=== PATIENT | male | born 1960 | race Caucasian/White ===

== ENCOUNTER 2018-01-28 05:33 | Emergency (ER) | payer OTHER ==
[2018-01-28] MEDS ORDERED: Aspirin 81 MG Tab.Chew PO ONE (05:37)
[2018-01-28] MEDS ORDERED: Sodium Chloride 0.9% 2.5 ML Syringe FLUSH PRN (05:37)
[2018-01-28] MEDS ORDERED: Sodium Chloride 0.9% 10 ML Syringe FLUSH PRN (05:37)
--- NOTE | 2018-01-28 05:51 | EDM.PDOC ---
ED HPI GENERAL MEDICAL PROBLEM - General Chief Complaint: Chest Pain Stated Complaint: CHEST PAINS Time Seen by Provider: 01/28/18 05:34 - History of Present Illness INITIAL COMMENTS - FREE TEXT/NARRATIVE: HISTORY AND PHYSICAL: History of present illness: The patient is a 57-year-old male with no stated high blood pressure diabetes hypercholesterolemia and has no significant social history presents with sudden onset of left midsternal chest pain pressure that started while he was doing normal morning activities. The patient says he had a normal day yesterday with no systemic complaints no increased or excessive activities and no recent travel. He went about his usual time and woke up at 445, his usual morning wakeup time. After approximately 20-25 minutes of doing his morning ADLs he had sudden onset of this chest pain pressure which was associated with shortness of breath some nausea and lightheadedness but he did not pass out or blackout. Pain did not radiate and he did not take any medications for it and he rated it at its onset as a 9/10. He said he went and laid down in his bed and tried to relax and then decided to come here for evaluation and he currently rates it as a 3/10. He states that he has had chest pain in the past but nothing to this degree and his last full cardiac evaluation was 6 years ago and his last stress test a couple of years ago all of which were negative. The patient says he does activities during the day and does not get chest pain or shortness of breath. He said this was highly unusual and very sudden. He says he has had no abdominal complaints no flank pain and no urinary issues. He has had no leg pain or swelling and currently does not feel short of breath. He has a significant family history of a father who had IL in his 50s, around the same age he is currently now. The patient does not have a local provider Review of systems: As per history of present illness and below otherwise all systems reviewed and negative. Past medical history: As per history of present illness and as reviewed below otherwise noncontributory. Surgical history: As per history of present illness and as reviewed below otherwise noncontributory. Social history: No reported history of drug or alcohol abuse. Family history: As per history of present illness and as reviewed below otherwise noncontributory. Physical exam: General: Well developed well-nourished mildly overweight man who is nontoxic and vital signs are reviewed by me HEENT: Atraumatic, normocephalic, negative for conjunctival pallor or scleral icterus, mucous membranes moist, throat clear, neck supple, nontender, trachea midline. Lungs: Clear to auscultation, breath sounds equal bilaterally, chest nontender. No work of breathing wheezing or stridor and no reproducible chest wall tenderness on palpation Heart: S1S2, regular rhythm but slightly bradycardic rate on my evaluation, negative for clicks, rubs, or JVD. No overt murmurs are appreciated Abdomen: Soft, nondistended, nontender. Negative for masses or hepatosplenomegaly. NABS, and there is no mid epigastric tenderness or pulsatile masses Pelvis: Stable nontender. Genitourinary: Deferred. Rectal: Deferred. Extremities: Atraumatic, negative for cords or calf pain. Neurovascular unremarkable. No pedal edema or leg asymmetry Neuro: Awake, alert, oriented. Cranial nerves II through XII unremarkable. Cerebellum unremarkable. Motor and sensory unremarkable throughout. Exam nonfocal. Skin: Normal turgor no overt rashes or lesions and no diaphoresis Diagnostics: EKG CBC CMP INR troponin chest x-ray Therapeutics: IV O2 monitor aspirin sublingual nitroglycerin , NTP Patient complained of a headache but declined Tylenol Chest pain after 3 sublingual nitros is barely a 1/10. We will apply Nitropaste and continue to monitor the testing results and plan for observation admission. TESTING results have been obtained and discussed with the patient and at bedside. He is aware of my concerns regarding his risk factors and his presentation and that I have strongly advised observation admission. His tells me that he had a similar episode about 3 years ago but it was only a discomfort and not HEENT to this level. After discussing the options with his and re-discussing them with me the patient is declining admission. He understands the risks involved with this and my concerns and states he will follow-up as an outpatient. Impression: Chest pain rule out ACS, patient declines admission Definitive disposition and diagnosis as appropriate pending reevaluation and review of above. chest Pain Score (Numeric/FACES): 3 - Related Data Allergies Allergy/AdvReac Type Severity Reaction Status Date / Time No Known Allergies Allergy Verified 01/28/18 05:47 Home Meds: Home Meds Indomethacin [Indocin] 25 mg PO ASDIRECTED PRN 01/28/18 [History] ED ROS GENERAL - Review of Systems Review Of Systems: ROS reveals no pertinent complaints other than HPI. ED EXAM, GENERAL - Physical Exam Exam: See Below (See dictation) Course - Vital Signs Last Recorded V/S: Last Vital Signs Temp 36.4 C 01/28/18 05:41 Pulse 51 L 01/28/18 06:32 Resp 18 01/28/18 06:32 BP 115/65 01/28/18 06:32 Pulse Ox 98 01/28/18 06:32 - Orders/Labs/Meds Orders: Active Orders 24 hr Category Date Time Status Cardiac Monitoring [RC] . DIRECTED Care 01/28/18 05:36 Active EKG Documentation Completion [RC] STAT Care 01/28/18 05:36 Active Oxygen Therapy, ED [RC] ASDIRECTED Care 01/28/18 05:36 Active Pulse Oximetry [RC] ASDIRECTED Care 01/28/18 05:36 Active Chest 1V Frontal [CR] Stat Exams 01/28/18 05:37 Taken Sodium Chloride 0.9% [Saline Flush] Med 01/28/18 05:37 Active 10 ml FLUSH ASDIRECTED PRN Sodium Chloride 0.9% [Saline Flush] Med 01/28/18 05:37 Active 2.5 ml FLUSH ASDIRECTED PRN Saline Lock Insert [OM.PC] Stat Oth 01/28/18 05:36 Ordered Medication Orders Sodium Chloride (Saline Flush) 10 ml FLUSH ASDIRECTED PRN PRN Reason: Keep Vein Open Sodium Chloride (Saline Flush) 2.5 ml FLUSH ASDIRECTED PRN PRN Reason: Keep Vein Open Labs: Laboratory Tests 01/28/18 01/28/18 01/28/18 Range/Units 05:40 05:40 05:40 WBC 8.14 (4.0-11.0) K/uL RBC 4.84 (4.50-5.90) M/uL Hgb 14.7 (13.0-17.0) g/dL Hct 41.8 (38.0-50.0) % MCV 86.4 (80.0-98.0) fL MCH 30.4 (27.0-32.0) pg MCHC 35.2 (31.0-37.0) g/dL RDW Std Deviation 41.3 (28.0-62.0) fl RDW Coeff of Preet 13 (11.0-15.0) % Plt Count 207 (150-400) K/uL MPV 10.60 (7.40-12.00) fL Neut % (Auto) 50.8 (48.0-80.0) % Lymph % (Auto) 36.0 (16.0-40.0) % Waller % (Auto) 9.2 (0.0-15.0) % Eos % (Auto) 3.6 (0.0-7.0) % Baso % (Auto) 0.4 (0.0-1.5) % Neut # (Auto) 4.1 (1.4-5.7) K/uL Lymph # (Auto) 2.9 H (0.6-2.4) K/uL Waller # (Auto) 0.8 (0.0-0.8) K/uL Eos # (Auto) 0.3 (0.0-0.7) K/uL Baso # (Auto) 0.0 (0.0-0.1) K/uL Nucleated RBC % 0.0 /100WBC Nucleated RBCs # 0 K/uL INR 0.98 Sodium 140 (136-148) mmol/L Potassium 3.7 (3.5-5.1) mmol/L Chloride 106 (98-107) mmol/L Carbon Dioxide 26.9 (21.0-32.0) mmol/L BUN 23 H (7.0-18.0) mg/dL Creatinine 1.1 (0.8-1.3) mg/dL Est Cr Clr Drug Dosing 73.20 mL/min Estimated GFR (MDRD) > 60.0 ml/min Glucose 112 H (74-106) mg/dL Calcium 8.5 (8.5-10.1) mg/dL Total Bilirubin 0.3 (0.2-1.0) mg/dL AST 11 L (15-37) IU/L ALT 32 (14-63) IU/L Alkaline Phosphatase 64 (46-116) U/L Troponin I < 0.050 (0.000-0.056) ng/mL Total Protein 7.0 (6.4-8.2) g/dL Albumin 3.6 (3.4-5.0) g/dL Globulin 3.4 (2.0-3.5) g/dL Albumin/Globulin Ratio 1.1 L (1.3-2.8) Meds: Medications Generic Name Dose Route Start Last Admin Trade Name Freq PRN Reason Stop Dose Admin Sodium Chloride 10 ml 01/28/18 05:37 Saline Flush FLUSH ASDIRECTED PRN Keep Vein Open Sodium Chloride 2.5 ml 01/28/18 05:37 Saline Flush FLUSH ASDIRECTED PRN Keep Vein Open Discontinued Medications Generic Name Dose Route Start Last Admin Trade Name Freq PRN Reason Stop Dose Admin Acetaminophen 1,000 mg 01/28/18 06:19 01/28/18 06:31 Tylenol Extra Strength PO 01/28/18 06:20 Not Given ONETIME ONE Aspirin 324 mg 01/28/18 05:37 01/28/18 05:48 Aspirin PO 01/28/18 05:38 324 mg ONETIME ONE Administration Nitroglycerin 0.4 mg 01/28/18 05:44 01/28/18 06:07 Nitrostat SL 0.4 mg Q5M PRN Administration Chest Pain Nitroglycerin 0.5 gm 01/28/18 06:19 01/28/18 06:30 Nitro-Bid 2% TOP 01/28/18 06:20 0.5 gm ONETIME ONE Administration Departure - Departure Time of Disposition: 06:38 Disposition: Home, Self-Care 01 Condition: Good Clinical Impression: Chest pain Qualifiers: Chest pain type: unspecified Qualified Code(s): R07.9 - Chest pain, unspecified - Discharge Information Referrals: PCP,None [Primary Care Provider] - Forms: ED Department Discharge Additional Instructions: The following information is given to patients seen in the emergency department who are being discharged to home. This information is to outline your options for follow-up care. We provide all patients seen in our emergency department with a follow-up referral. The need for follow-up, as well as the timing and circumstances, are variable depending upon the specifics of your emergency department visit. If you don't have a primary care physician on staff, we will provide you with a referral. We always advise you to contact your personal physician following an emergency department visit to inform them of the circumstance of the visit and for follow-up with them and/or the need for any referrals to a consulting specialist. The emergency department will also refer you to a specialist when appropriate. This referral assures that you have the opportunity for followup care with a specialist. All of these measure are taken in an effort to provide you with optimal care, which includes your followup. Under all circumstances we always encourage you to contact your private physician who remains a resource for coordinating your care. When calling for followup care, please make the office aware that this follow-up is from your recent emergency room visit. If for any reason you are refused follow-up, please contact the [facility] emergency department at and ask to speak to the emergency department charge nurse. [facility]- Internal Medicine and Family [address] [address] Please take one 325 milligram aspirin once a day until you're followed up in the clinic. Please call and schedule a follow-up appointment as we discussed for further testing and return to ER as needed and as discussed. - My Orders Last 24 Hours: My Active Orders 01/28/18 05:36 Cardiac Monitoring [RC] . DIRECTED EKG Documentation Completion [RC] STAT Oxygen Therapy, ED [RC] ASDIRECTED Pulse Oximetry [RC] ASDIRECTED Saline Lock Insert [OM.PC] Stat 01/28/18 05:37 Chest 1V Frontal [CR] Stat Sodium Chloride 0.9% [Saline Flush] 10 ml FLUSH ASDIRECTED PRN Sodium Chloride 0.9% [Saline Flush] 2.5 ml FLUSH ASDIRECTED PRN - Assessment/Plan Last 24 Hours: My Active Orders 01/28/18 05:36 Cardiac Monitoring [RC] . DIRECTED EKG Documentation Completion [RC] STAT Oxygen Therapy, ED [RC] ASDIRECTED Pulse Oximetry [RC] ASDIRECTED Saline Lock Insert [OM.PC] Stat 01/28/18 05:37 Chest 1V Frontal [CR] Stat Sodium Chloride 0.9% [Saline Flush] 10 ml FLUSH ASDIRECTED PRN Sodium Chloride 0.9% [Saline Flush] 2.5 ml FLUSH ASDIRECTED PRN
[2018-01-28] MEDS: Nitroglycerin 0.4 MG Tab.SL SL PRN ×3 (05:52→06:07)
[2018-01-28] MEDS ORDERED: Acetaminophen 500 MG Tab PO ONE (06:19)
[2018-01-28] MEDS ORDERED: Nitroglycerin 2% Oint 1 GM UD Packet TOP ONE (06:19)
[2018-01-28 06:20] LABS: CHLORIDE,CL 106 mmol/L (98-107); SODIUM,NA 140 mmol/L (136-148)
--- NOTE | 2018-01-28 17:13 | CR ---
EXAM DATE: 01/28/18 PATIENT'S AGE: 57 Patient: POP SHEN Facility: [place], [place] Site . Site : 1960 Study: XRay Chest [id number]/17/2018 6:10:53 AM Ordering Physician: Doctor Forte Final Report: INDICATION: Chest pain. TECHNIQUE: AP chest. COMPARISON: None. FINDINGS: The cardiac, mediastinal and hilar contours are within normal limits. Pulmonary vasculature is unremarkable. There is a small dense nodule projecting over the lateral aspect of the right lung base. Calcified granuloma is favored. Lungs otherwise appear clear. No pleural fluid or pneumothorax. Postsurgical changes are seen in the cervical spine. IMPRESSION: No signs of acute cardiopulmonary disease. See above. Dictated by Christian Orozco MD @ 01/28/2018 6:23:06 AM Dictated by: Christian Orozco MD @ 01/28/2018 06:23:11 (Electronic Signature) Report Signed by Proxy. [facility] MED[facility] CENTERGrace
== END 2018-01-28 06:56 | disposition home or self-care (01) ==
LOC: MW.ED 05:33
DX: R07.9 Chest pain, unspecified (principal); I10 Essential (primary) hypertension; E11.9 Type 2 diabetes mellitus without complications; E78.00 Pure hypercholesterolemia, unspecified
CPT/HCPCS: 71045; 80053; 84484; 85025; 85610; 93005; 99285; A9270